=== PATIENT | female | born 1950 | race Caucasian/White ===

== ENCOUNTER 2017-03-30 08:04 | Inpatient (IN) | payer OTHER ==
--- NOTE | 2017-02-18 15:32 | HP ---
DATE OF ADMISSION: 03/30/2017 DATE OF DICTATION: 12/02/2016 DATE OF SURGERY: Undetermined. REASON FOR ADMISSION: Chronically incarcerated ventral incisional hernia, abdominal pain. BRIEF HISTORY: This is a 66-year-old female who has undergone 3 sections and subsequently now has a large, enlarging, chronically incarcerated ventral incisional hernia. The patient states she has had this for many years; however, recently she has more pain, and she feels that the bulge in the left lower abdomen is larger. She also feels a profound heaviness in the lower abdomen as she walks. She has had no change in bowel habits, no nausea, no vomiting. PAST MEDICAL HISTORY: Significant for reflux disease, hypertension, hypercholesterolemia, arthritis, and bleeding issues. PAST SURGICAL HISTORY: As mentioned above, thyroidectomy. ALLERGIES: None. SOCIAL HISTORY: Patient is a professor at [employer]. She does not smoke nor drink. MEDICATIONS: The patient does not have her medication list at this time and will fax it to the office at some point. PHYSICAL EXAMINATION: Lungs: Clear. Heart: Regular. Abdomen: Soft, nontender, nondistended, and mildly obese. She has a chronically incarcerated incisional hernia noted in the lower abdomen from umbilicus down to pubis. The hernia is offset to the patient's left lower quadrant. There is a large mass in the left lower quadrant. The hernia scar is very poorly healed in the lower two-thirds. Her umbilicus is distorted. IMPRESSION/PLAN: Chronically incarcerated incisional hernia (complex): This is a 66-year-old female with progressive abdominal pain and worsening of her complex chronically incarcerated incisional hernia. At this point, I think she should undergo an open repair with mesh. Due to the size of this hernia on physical examination, I suspect it will require a total abdominal reconstruction, component separation, and repair with mesh. Due to the poor healing of her old scars, and her abdominal obesity and girth, I think she would benefit from an abdominoplasty concomitantly. Patient will be referred to a plastic surgeon for further evaluation of abdominoplasty. If the patient chooses not to proceed with any cosmetic portion of the operation, will schedule for a total abdominal wall reconstruction, complex hernia repair with mesh, bilateral component separation. The patient understands that if I do this without Plastics involved, the cosmesis will not be as nice, and she may have lopsidedness after the surgery as well as loss of umbilicus. Patient accepting of this. Priscila GIBSON [id number] cc: Anita Feliciano MD
[2017-03-28 14:34] VITALS: BMI 30.2
[2017-03-30] MEDS ORDERED: DEXAMETHASONE SOD PHOSPHATE/PF 10 MG/ML SDV ONE (10:17)
[2017-03-30] MEDS ORDERED: MIDAZOLAM HCL 2 MG/2 ML SINGLE DOSE VIAL ONE (10:17)
[2017-03-30] MEDS ORDERED: BUPIVACAINE HCL/PF (5 MG/ML) 30 ML VIAL IJ ONE (10:17)
[2017-03-30] MEDS ORDERED: BUPIVACAINE HCL/PF 2.5 MG/ML - 30 ML VIAL IJ ONE (10:18)
[2017-03-30] MEDS ORDERED: PROPOFOL 20 ML ONE ×2 (10:45)
[2017-03-30] MEDS ORDERED: ROCURONIUM BROMIDE 50 MG/5 ML VIAL ONE ×3 (10:46→13:22)
[2017-03-30] MEDS ORDERED: GLYCOPYRROLATE 0.2 MG/1 ML VIAL ONE ×4 (10:52→14:42)
[2017-03-30] MEDS ORDERED: NEOSTIGMINE METHYLSULFATE 0.5 MG/ML - 10 ML MDV ONE ×2 (10:59→14:31)
[2017-03-30] MEDS ORDERED: BUPIVACAINE HCL/PF 0.5% (5MG/ML) 10 ML VIAL ONE (11:13)
[2017-03-30] MEDS ORDERED: LIDOCAINE HCL 1%, 10 MG/ML (20ML VIAL) ONE (11:18)
[2017-03-30] MEDS ORDERED: LIDOCAINE 1%/EPI 1:100000 (20 ML MULTI DOSE VIAL) ONE (11:26)
[2017-03-30] MEDS ORDERED: ceFAZolin SODIUM 1 GM VIAL ONE (11:44)
[2017-03-30] MEDS ORDERED: HYDROmorphone HCL/PF 1 MG/ML VIAL (FOR PYXIS CHARGING ONLY) ONE (11:46)
[2017-03-30] MEDS ORDERED: DEXAMETHASONE SOD PHOSPHATE 4 MG/1 ML VIAL ONE ×2 (11:46→14:44)
[2017-03-30] MEDS ORDERED: ONDANSETRON 4 MG/2 ML VIAL ONE ×2 (11:46→14:44)
--- NOTE | 2017-03-30 14:36 | OP ---
DATE OF OPERATION: 03/30/2017 PREOPERATIVE DIAGNOSIS: Complex chronically incarcerated ventral incisional hernia. POSTOPERATIVE DIAGNOSIS: Complex chronically incarcerated ventral incisional hernia. PROCEDURE: Open repair of complex chronically incarcerated ventral incisional hernia, total abdominal wall reconstruction, partial omentectomy, open bilateral component separation, peritoneal lavage. SURGEON: Thor Schreiber MD DOG BEAUTICIAN: Umesh Lundy DO ANESTHESIA: Liz Espinoza MD (general) ESTIMATED BLOOD LOSS: Minimal. SPECIMEN: Portion of omentum. INDICATION FOR PROCEDURE: This is a 66-year-old female who is status post 3 c-sections. She has a known chronically incarcerated large low abdominal wall ventral hernia. It is causing her discomfort and it has gotten larger and now she wished to have this repaired. Patient identified and was appropriately positioned on the operating room table. The abdominal exposure was provided by Dr. Nicolas through his abdominoplasty incision. Once this exposure was given, I came to perform the total abdominal reconstruction. The hernia identified in the lower midline. The hernia was chronically incarcerated and contained what appeared to be bowel and omentum. The hernia sac was opened, the sac sharply excised. Upon opening the sac, the patient clearly had a sliding hernia that was consistent with a portion of a sigmoid as well as omentum. These adhesions were taken down, the sigmoid reduced back into the abdominal cavity along with the omentum. The posterior sheath on the patient's right side was identified. The posterior sheath was from the linea alba with the cautery. The retrorectus space was then developed bluntly and out laterally. The perforating vessels identified and the transversus fascia just medial to the perforating vessels was scored and the transversus abdominis muscle was then from the obliques and rectus junction. The transversus abdominis muscle was now moved medially. This myofascial separation was performed approximately 4 inches above the defect and down to the level of the pubis and out laterally to the anterior iliac spine. Once this was accomplished on the right side, a similar technique was used on the left side. Again, the retrorectus space was entered by dividing the posterior sheath. Then, rectus space at this time was then subsequently developed with blunt dissection. Due to the large hernia defect that had shifted off to the patient's left, the fascia on this side was much more torn and its separation was much more difficult. A portion of the rectus muscle on the left had to be divided where it was completely fused with the thin peritoneum/posterior sheath. Next, the perforating vessels again were identified and just medial to the perforating vessels the fascia of the transversus was subsequently divided with the cautery, the transversus muscle then rolled medially, and the myofascial separation was then performed approximately 4 inches above and below the actual defect. Laterally, this allowed exposure and placement of this mesh well beyond the anterior iliac spine and inferiorly down to the level of the pubis and superiorly up to the subcostal space. With the abdominal cavity now examined, the operative field was noted to be hemostatic and portion of the omentum that was divided, that free edge, was also hemostatic. The omentum had to be divided because it made up the back wall of the hernia sac at 1 portion. The transversus/peritoneum was then reapproximated in the midline with a running locking 3-0 Maxon suture. The sutures were placed in a 4:1 suturing technique of fascia. Next, the retrorectus space examined and noted to be hemostatic. The defect measured and a large 30 x 30 piece of Versatex mesh as well as a 25 x 25 piece of Phasix was used for the operative repair. The Phasix was sewn to the Versatex in a hybrid fashion with interrupted 3-0 Vicryl sutures. The Phasix was placed on the transversus side and the Versatex was placed on the posterior rectus side. The mesh was then placed into the retrorectus space and then fanned superiorly and inferiorly. Superiorly the mesh just went below the costal margin and inferiorly down to the level of the pubis and laterally the mesh was out past the anterior iliac spines on either side. The mesh itself was anchored with a multitude of interrupted ReliaTack sutures. The mesh was then irrigated. The operative field examined and noted to be hemostatic. The anterior rectus fascia was then reapproximated with a running No. 1 PDS suture, the subcutaneous space irrigated, and at this point Dr. Nicolas completed the abdominoplasty. Please refer to his dictation for all abdominoplasty portions of the operation. At the conclusion of this portion of the operation, sponge and needle counts correct. Attestation hand written on the preprinted form. THOR Priscila [id number] cc: Anita Shipman MD
[2017-03-30] MEDS ORDERED: ONDANSETRON 4 MG/2 ML VIAL IVPB PRN (15:10)
[2017-03-30] MEDS ORDERED: LACTATED RINGERS SOLUTION 1,000 ML IV SCH (15:15)
[2017-03-30] MEDS ORDERED: oxyCODONE HCL 5 MG TABLET PO PRN (15:21)
--- NOTE | 2017-03-30 15:25 | OP ---
Operative Note - Note: Operative Date: 03/30/17 Pre-Operative Diagnosis: Abominal wall hernia, excess pannus Operation: Abdominal hernia repair with panniculectomy Post-Operative Diagnosis: Same as Pre-op Surgeon: Thor Schreiber (andrea, ) Salon Leader: Denise Weber Anesthesiologist/OIL BURNER: Liz Espinoza Anesthesia: General Specimens Removed: Abdominal skin and adipose tissue Estimated Blood Loss (mls): 100 Drains & Tubes with Location: Two NIGHAT drains lower abdomen size 19 xiomara Operative Report Dictated: Yes
[2017-03-30] MEDS ORDERED: traMADol HCL 50 MG TABLET PO SCH (16:00)
[2017-03-30] MEDS ORDERED: diazePAM 2 MG TABLET PO SCH (16:00)
[2017-03-30] MEDS ORDERED: ACETAMINOPHEN 325 MG TABLET (FP) PO SCH (16:00)
[2017-03-30] MEDS: traMADol HCL 50 MG TABLET PO SCH ×2 (16:15→21:51)
[2017-03-30] MEDS: ACETAMINOPHEN 325 MG TABLET (FP) PO SCH ×2 (16:15→21:52)
[2017-03-30] MEDS ORDERED: ACETAMINOPHEN 325 MG TABLET (FP) ONE (16:18)
[2017-03-30] MEDS ORDERED: traMADol HCL 50 MG TABLET ONE (16:19)
--- NOTE | 2017-03-30 16:19 | OP ---
DATE OF OPERATION: 03/30/2017 SURGEON: Ashly Nicolas MD JET DYEING MACHINE TENDER: Denise Weber PA-C PREOPERATIVE DIAGNOSIS: Acquired abdominal wall deformity, status post hernia repair. POSTOPERATIVE DIAGNOSIS: Acquired abdominal wall deformity, status post hernia repair. OPERATIVE PROCEDURE: Panniculectomy for hernia repair with mesh. OPERATIVE INDICATION: The patient is a woman who was brought to the operating room by Dr. Thor Schreiber. This is a combined dictation with Dr. Schreiber who will dictate his portion of the operation under separate cover. OPERATIVE PROCEDURE IN DETAIL: The patient was taken to the operating room, and after induction of general anesthesia in supine position, the markings which were made in the standing position preoperatively in the holding area with the patient's knowledge of incisions, ultimate scars, and risks and benefits were discussed with the patient today and with her daughter in attendance. When the patient was prepped and draped in the usual fashion, a timeout was called, and then the entire abdominal wall which had been prepped and draped with ChloraPrep solution over its entire extent was infiltrated along the planned incision measuring approximately 36 cm in length across the lower abdomen just below the hernia. At this point, I began the operation by incising the skin using a number-10 scalpel down through the skin to the dermal tissue, through the dermal tissue, down to the underlying subcutaneous tissue. I then carried the incision down through the subcutaneous tissue, down to the underlying deep fascia of the abdominal wall and rectus fascia. A large central hernia between the umbilicus and the pubis area was encountered. Dissection was carried out on both sides of the hernia itself and circumferentially around the hernia. Dissection continued out over the external oblique to the lateral flanks. The dissection was then carried, exposing the hernia for repair by Dr. Schreiber. This was carried up to the umbilicus, which was circumscribed and dropped back. Dissection was carried superiorly approximately 10 cm above the umbilicus in order to accomplish the repair. At this point, the procedure was turned over to Dr. Schreiber and he performed the hernia repair with mesh. Once this was accomplished, attention was turned back to the abdominal wall after the repair. Hemostasis was meticulously obtained throughout. Copious irrigation of the abdominal wall was carried out and then plication of the abdominal wall in a lateral fashion was carried out to tighten the fascia laterally and help repair. At this point, the skin and subcutaneous tissue was amputated according to the pattern above the umbilicus, and then the abdominal superior wall was brought down to the inferior portion of the incision at the pubis. Two 19-Ross drains were brought out through separate stab wounds laterally. Copious irrigation of the wound was performed. Hemostasis was again obtained and then the abdominal wall was closed in layers. Using 2-0 Vicryl sutures in interrupted fashion, the Doreen fascia and the abdominal wall were tacked together for insetting. Multiple sutures were placed across the abdominal wall and then a layered suture using 3-0 Biosyn suture in the deep dermis and a subcuticular suture with 4-V-Loc suture. The umbilicus which had been circumscribed and dropped back was now brought out into its new anatomic position using the technique and sutured using 3-0 Biosyn and 5-0 plain catgut sutures. The wounds were dressed sterilely with Dermabond, Steri-Strips and a compressive dressing. She was awakened, extubated, and transferred to the recovery room in satisfactory condition in an abdominal binder on her bed. ASHLY NICOLAS M.D. [id number]
[2017-03-30] MEDS: oxyCODONE HCL 5 MG TABLET PO PRN (19:13)
[2017-03-30] MEDS: CEFAZOLIN 1 GM/D5W 50 ML IVPB SCH (21:51)
[2017-03-30] MEDS: diazePAM 2 MG TABLET PO SCH (21:51)
[2017-03-31] MEDS: oxyCODONE HCL 5 MG TABLET PO PRN ×3 (01:58→19:30)
[2017-03-31] MEDS: CEFAZOLIN 1 GM/D5W 50 ML IVPB SCH ×3 (03:14→15:30)
[2017-03-31] MEDS: traMADol HCL 50 MG TABLET PO SCH ×4 (03:16→21:32)
[2017-03-31] MEDS: ACETAMINOPHEN 325 MG TABLET (FP) PO SCH ×4 (03:17→21:32)
[2017-03-31] MEDS: diazePAM 2 MG TABLET PO SCH ×3 (06:13→21:32)
[2017-03-31] MEDS: LEVOTHYROXINE NA 75 MCG TABLET (FP) PO SCH (06:14)
[2017-03-31] MEDS ORDERED: PATIENT'S OWN MEDICATION (NON-FORMULARY) (Lisinopril [Prinivil -] 40 MG) PO SCH (10:00)
[2017-03-31] MEDS ORDERED: PATIENT'S OWN MEDICATION (NON-FORMULARY) (Rabeprazole Sodium [Rabeprazole Sodium] 20 MG) PO SCH (10:00)
[2017-03-31] MEDS ORDERED: IBUPROFEN 800 MG/8 ML IJ IVPB PRN (10:09)
--- NOTE | 2017-03-31 10:14 | PN ---
Progress Note (short form) - Note Progress Note: surgery pt seen and examined. tolerating diet. not out of bed. complains of abd pain on movement. harrison out awaiting first void. afebrile abd- dressing c/d/i A/P 1) Pod#1- reg diet, cont drains per plastics, harrison out 2) prophylaxis- lovenox, protonix, oob, pt eval, spirometer 3) pain- oxycodone, ultram, add caldalor poss d/c tomorrow if able to ambulate, climb stairs, void, pain controlled and able to continue to tolerate diet.
[2017-03-31] MEDS: LISINOPRIL 20 MG TABLET (FP) PO SCH (10:21)
[2017-03-31] MEDS: PANTOPRAZOLE 40 MG TABLET (FP) PO SCH (10:21)
[2017-03-31] MEDS: CITALOPRAM HYDROBROMIDE 20 MG TABLET (FP) PO SCH (10:22)
--- NOTE | 2017-03-31 10:22 | PN ---
Progress Note, Physician Chief Complaint: Pt is POD # 1 s/p hernia repair and panniculectomy History of Present Illness: POD #1 s/p abdominal hernia repair with panniculectomy. Pain controlled. Pt denies any rowell, sob, nausea, or vomiting. Laying comfortably in bed. - Current Medication List Current Medications: Active Medications Acetaminophen (Tylenol -) 650 mg PO Q6H [facility] Last Admin: 03/31/17 03:17 Dose: 650 mg Citalopram Hydrobromide (Celexa -) 20 mg PO DAILY [facility] Diazepam (Valium -) 2 mg PO Q8H [facility] Last Admin: 03/31/17 06:13 Dose: 2 mg Diphenhydramine HCl (Benadryl Injection -) 25 mg IVPB Q4H PRN PRN Reason: FOR ITCHING Enoxaparin Sodium (Lovenox -) 40 mg SQ DAILY [facility] Fentanyl (Sublimaze Injection -) 50 mcg IVPUSH [id number] PRN PRN Reason: PAIN Stop: 04/02/17 15:20 Last Admin: 03/30/17 16:13 Dose: 25 mcg Cefazolin Sodium (Ancef 1 Gm Premixed Ivpb -) 50 mls @ 100 mls/hr IVPB Q6H-IV LINH Stop: 03/31/17 15:29 Last Admin: 03/31/17 03:14 Dose: 100 mls/hr Ibuprofen (Caldolor Injection -) 800 mg IVPB Q6H PRN PRN Reason: PAIN Levothyroxine Sodium (Synthroid -) 75 mcg PO DAILY@0700 [facility] Last Admin: 03/31/17 06:14 Dose: 75 mcg Lisinopril (Prinivil) 40 mg PO DAILY [facility] Ondansetron HCl (Zofran Injection) 4 mg IVPB Q4H PRN PRN Reason: NAUSEA AND/OR VOMITING Last Admin: 03/30/17 15:35 Dose: 4 mg Oxycodone HCl (Roxicodone -) 5 mg PO Q4H PRN PRN Reason: MILD PAIN Oxycodone HCl (Roxicodone -) 10 mg PO Q4H PRN PRN Reason: PAIN LEVEL 6-10 Last Admin: 03/31/17 05:09 Dose: 10 mg Pantoprazole Sodium (Protonix -) 40 mg PO DAILY [facility] Tramadol HCl (Ultram -) 50 mg PO Q6H [facility] Last Admin: 03/31/17 03:16 Dose: 50 mg - Objective Vital Signs: Vital Signs Temperature 98.2 F 03/31/17 05:00 Pulse Rate 68 03/31/17 05:00 Respiratory Rate 18 03/31/17 05:00 Blood Pressure 121/67 03/31/17 05:00 O2 Sat by Pulse Oximetry (%) 95 03/31/17 05:27 Constitutional: Yes: Well Nourished, Calm Eyes: Yes: WNL HENT: Yes: WNL Neck: Yes: WNL Cardiovascular: Yes: WNL Respiratory: Yes: WNL Gastrointestinal: Yes: WNL, Soft ...Rectal Exam: Yes: Deferred Genitourinary: Yes: Other (pening void s/p harrison removal) Musculoskeletal: Yes: WNL Extremities: Yes: WNL Integumentary: Yes: WNL Wound/Incision: Yes: Clean/Dry, Well Approximated, Steri Strips, Dressing Dry and Intact (NIGHAT drains holding suction) Additional Findings/Remarks: Pt is POD #1 s/p abdominal hernia repair and panniculectomy. Cont NIGHAT drains to suction cont Abdominal binder Cont bed in Costa position OOB to Chair cont pain management Cont anitcoagulation Cleared for discharge from Plastics
[2017-03-31] MEDS: ENOXAPARIN NA (PORCINE) 40 MG/0.4 ML DISP.SYRIN SQ SCH (11:26)
[2017-04-01] MEDS: oxyCODONE HCL 5 MG TABLET PO PRN (02:26)
[2017-04-01] MEDS: ACETAMINOPHEN 325 MG TABLET (FP) PO SCH ×2 (03:13→09:41)
[2017-04-01] MEDS: traMADol HCL 50 MG TABLET PO SCH ×2 (03:14→09:42)
[2017-04-01 05:46] VITALS: BP 131/65; PULSE 83; TEMP 98.6
[2017-04-01] MEDS: diazePAM 2 MG TABLET PO SCH (06:15)
[2017-04-01] MEDS: LEVOTHYROXINE NA 75 MCG TABLET (FP) PO SCH (06:16)
[2017-04-01] MEDS: LISINOPRIL 20 MG TABLET (FP) PO SCH (09:41)
[2017-04-01] MEDS: CITALOPRAM HYDROBROMIDE 20 MG TABLET (FP) PO SCH (09:42)
[2017-04-01] MEDS: PANTOPRAZOLE 40 MG TABLET (FP) PO SCH (09:42)
[2017-04-01] MEDS: ENOXAPARIN NA (PORCINE) 40 MG/0.4 ML DISP.SYRIN SQ SCH (09:43)
--- NOTE | 2017-04-01 11:14 | DS ---
DATE OF ADMISSION: 03/30/2017 DATE OF DISCHARGE: 04/01/2017 ADMISSION DIAGNOSES: Complex, incarcerated inguinal hernia, with pre-existing hypertension, hypothyroid disease. DISCHARGE DIAGNOSES: Complex, incarcerated inguinal hernia, with pre-existing hypertension, hypothyroid disease. BRIEF HISTORY: A 66-year-old female who was admitted to [facility] for surgical management of a complex, incarcerated inguinal hernia. On March 30, she underwent repair of this hernia utilizing mesh, as well as component separation, myofascial release, and abdominal wall reconstruction. Please reference Dr. Thor Schreiber's operative report for further details. She also underwent an abdominoplasty, at the same time, done by Dr. Dagoberto Nicolas. Please reference Dr. Nicolas's operative report for further details. Postoperatively, she did well. By this morning, her discomfort was controlled with oral narcotics. She was able to tolerate a regular diet and she is now able to ambulate and climb stairs. At this point, she will be discharged with a new prescription for Percocet which she will take as needed for pain. She will resume her usual home medications. She will empty her drains daily, and record their amounts, or sooner if necessary. She will follow with Dr. Nicolas next week and Dr. Schreiber the following week for postoperative checks. She is okay to walk, okay to climb stairs. She will not lift anything more than 20 pounds and she will only sponge-bathe. DO FROILAN ARREDONDO/[id number]
--- NOTE | 2017-04-01 15:40 | PATH ---
Surgical Pathology Report Patient Name: AMERICA IRWIN Med. Rec. #: [id number] /Age/Gender: 1950 (Age: 66) / F Account: [id number] Location: [facility] Taken: 03/30/2017 Received: 03/30/2017 Reported: 04/01/2017 Physicians: Thor Schreiber Specimen(s) Received ABDOMINAL PANNUS Clinical History Unspecified abdominal pain and unspecified ventral hernia Final Diagnosis ABDOMINAL PANNUS, PANNICULECTOMY: SKIN AND ADIPOSE TISSUE WITH NO SIGNIFICANT PATHOLOGIC FINDINGS. Electronically Signed Sanaz Rascon M.D. Gross Description Received in formalin labelled "abdominal pannus" is a 1470 gram aggregate of portions of skin with attached subcutaneous tissue, and yellow adipose tissue. There are 2 portions of triangular skin measuring in aggregate 37 x 19 x 5 cm. No focal lesions are identified. Also present is a 15 x 8 x 4 cm portion of yellow adipose tissue with attached purple fibromembranous tissue. Civil [employer] Specialist sections are submitted in one cassette. [facility]/03/31/2017 [facility]/03/31/2017
== END 2017-04-01 15:20 | disposition home health service (06) | DRG 227 ==
LOC: FASU 08:04 → FM/S 17:20 → FASU 17:20 → FM/S 17:28
PROVIDERS: ADMIT Surgery; ATTEND Surgery
PROC: 0DBS0ZZ (ICD-10-PCS; 2017-03-30)
PROC: 3E1M38Z Irrigation of Peritoneal Cavity using Irrigating Substance, Percutaneous Approach (ICD-10-PCS; 2017-03-30)
PROC: 0W0F0ZZ Alteration of Abdominal Wall, Open Approach (ICD-10-PCS; 2017-03-30)
PROC: 0WUF0JZ Supplement Abdominal Wall with Synthetic Substitute, Open Approach (ICD-10-PCS; principal; 2017-03-30 11:33)
PROC: 0WQF0ZZ Repair Abdominal Wall, Open Approach (ICD-10-PCS; 2017-03-30 11:33)
DX: K43.0 Incisional hernia with obstruction, without gangrene (principal); I10 Essential (primary) hypertension; E78.00 Pure hypercholesterolemia, unspecified; M19.90 Unspecified osteoarthritis, unspecified site; M95.8 Other specified acquired deformities of musculoskeletal system; E66.8 Other obesity; Z68.30 Body mass index [BMI] 30.0-30.9, adult; K21.9 Gastro-esophageal reflux disease without esophagitis
CPT/HCPCS: 88304-TC; 94010; 94760; 97116-GP; 97161-GP